=== PATIENT | female | born 2000 | race Two or more races ===

== ENCOUNTER → 2025-02-26 | Outpatient (CLI) | payer BC, SELFPAY ==
--- NOTE | 2025-02-26 07:30 | XR_ITS ---
Examination: Ultrasound soft tissue right axilla TECHNIQUE: Grayscale sonographic images soft tissue right axilla Date and time: February 26, 2025 0718 hours INDICATIONS: Right axillary pain 8 years. FINDINGS: No cystic or solid mass IMPRESSION: BI-RADS Category 1: Negative study
== END | disposition home or self-care (01) ==
LOC: CDIM 07:05
PROVIDERS: PCP Nurse Practitioner Family; Referring Provider Nurse Practitioner Family; Visit Provider Nurse Practitioner Family
DX: M79.621 Pain in right upper arm (principal)
CPT/HCPCS: 76882